=== PATIENT | female | born 1995 | race Caucasian/White ===

== ENCOUNTER 2020-10-28 03:20 | Outpatient (CLI) | payer BC ==
[~2020-10-28] VITALS: Ht 157.5 cm; Wt 68.6 kg
--- NOTE | 2020-10-28 03:25 | NUR ---
G1L0. 39-0. Ambulatory to LDR 3 with spouse. Clean gown on. EFM and TOCO explained and applied. Pt states she has been patricia since 2200 tonight. Reports contractions 8-10 mins apart and states they are starting to get shorter. Pt denies leaking of contractions or vaginal bleeding. Reports good movement. Plan of care explained to pt and . Denies quesitons at this time. SVE /-3. VS and assessment completed. Call light within reach.
[2020-10-28] MEDS ORDERED: PRENATAL MVI PO (03:42)
[2020-10-28 04:00] VITALS: BP 119/74; PULSE 101; TEMP 98.1
--- NOTE | 2020-10-28 04:30 | NUR ---
SVE unchanged. Plan of care and pain relief options explained to pt and who verbalize their understanding. Denies questions at this time. States she is just ready to go home. 0436: Dr. Hartley called and updated on pts status. See physican notification. 0437: Pt off monitors and instructed to change into street clothes. 0450: Discharge instructions explained to pt and who verbalize their understanding. Denies questions. Pt ambulatory off unit and home with spouse.
[2020-10-28 04:37] VITALS: BP 124/81; PULSE 87
== END 2020-10-28 04:50 | disposition home or self-care (01) ==
LOC: LDRO 03:20 → LDR 04:43 → LDRO 04:50
DX: O62.9 Abnormality of forces of labor, unspecified (principal); Z3A.39 39 weeks gestation of pregnancy
CPT/HCPCS: OP

== ENCOUNTER 2020-10-28 17:26 | Inpatient (IN) | payer BC ==
[~2020-10-28] VITALS: Ht 152.4 cm; Wt 68.6 kg
[2020-10-28] VITALS (22 sets, daily range): BP systolic 113–149; BP diastolic 60–95; PULSE 78–139; TEMP 98.4
[~2020-10-28 17:26] MED LIST: PRENATAL MVI PO
--- NOTE | 2020-10-28 17:30 | NUR ---
Pt arrives on unit ambulatory with spouse. States ctx that have intensified since this morning. Denies vaginal bleeding, LOF, and reports GFM. Rates pain 6/10 during the "peak of the contraction." Changed into clean gown. EFM and toco applied. VSS. SVE per this RN 4-5//-[address] Wilkins notified. Orders for admission. Pt requesting epidural. Admission assessment performed. Consents singed. Cat 1 FHR tracing.
[2020-10-28 18:04] LABS: BASO % 0.2 % (0.0-2.0); GRAN # 15.8 (1.4-6.5); GRAN % 88.7 % (42.2-75.2); HEMATOCRIT 38.2 % (37.0-47.0); HEMOGLOBIN 12.9 g/dl (12.5-16.0); LYMPH # 1.1 (1.2-3.4); LYMPH % 6.2 % (20.0-51.0); MEAN CELL VOLUME 86 fl (80.0-100.0); MEAN CORPUSCULAR HEMOGLOBIN 29 pg (27.0-31.0); MEAN CORPUSCULAR HGB CONC 34 g/dl (33.0-37.0); MEAN PLATELET VOLUME 10.7 fl (7.4-10.4); MONO # 0.8 (0.1-0.6); MONO % 4.3 % (1.7-9.3); PLATELET COUNT 310 K/mm3 (130-400); RED BLOOD COUNT 4.42 M/mm3 (4.10-5.30); REDCELL DISTRIBUTION WIDTH-CV 13.4 % (11.5-14.5)
--- NOTE | 2020-10-28 18:13 | NUR ---
1812- Pt sitting up on the edge of the bed for epidural placement. VERENA Guzman at the bedside. Time out done. SPO2 monitor started. EFM tracing maternal HR as coorelates with SPO2 monitor. 1820- Single shot given per VERENA Guzman. See anesthesia records for details. 1825- Assisted pt back to supine position with left wedge. EFM and toco monitors adjusted. Plan of care reviewed with pt and at the bedside.
--- NOTE | 2020-10-28 21:13 | NUR ---
2112- Dr. Wilkins at the bedside. FHR tracing reviewed. 2114- SVE /-[address] Wilkins. AROM with clear fluid. 2139- SVE by this RN . 2143- Henriquez removed without complications. Pushing instructions reviewed. 2145- Pushing started. 2219- Dr. Wilkins at the bedside and pushing with pt. 2228- Pt set up for delivery. 2229- Unable to determine FHR baseline. FHR ranging from 110-160bpm with moderate variability while pushing. Dr. Wilkins remains at the bedside. 2241- of viable male . [place] placed on mom's abdomen. Cords clamped and cut. Care of the given to nursery RN at the bedside. 2245- of placenta. Pitocin started at 333ml/hr per order and protocol. Fundus firm per Dr. Wilkins and zoe MILLSL.
[2020-10-29] VITALS (8 sets, daily range): BP systolic 113–136; BP diastolic 61–85; PULSE 88–112; TEMP 97.4–98.5
--- NOTE | 2020-10-29 08:45 | NUR ---
Warm pack provided for back pain.
--- NOTE | 2020-10-29 09:24 | NUR ---
Initial visit; Parents thanked Perinatal Technician for offering congratulations and God's blessings for the of their son. Perinatal Technician thanked family for choosing [facility].
--- NOTE | 2020-10-29 18:40 | NUR ---
Report recieved. Watching educational videos. Reports at 1800. Updated whiteboard and reviewed POC. Denied questions/concerns.
[2020-10-30 07:10] VITALS: BP 115/83; PULSE 81; TEMP 97.8
== END 2020-10-30 11:10 | disposition home or self-care (01) | DRG 807 ==
LOC: LDRO 17:26 → OB 17:32 → LDR 17:32 → OB 10-29 02:40
PROVIDERS: Obstetrics & Gynecology; ADMIT Obstetrics & Gynecology
PROC: 10E0XZZ Delivery of Products of Conception, External Approach (ICD-10-PCS; principal; 2020-10-28)
PROC: 0KQM0ZZ Repair Perineum Muscle, Open Approach (ICD-10-PCS; 2020-10-28)
PROC: 10907ZC Drainage of Amniotic Fluid, Therapeutic from Products of Conception, Via Natural or Artificial Opening (ICD-10-PCS; 2020-10-28)
DX: O70.1 Second degree perineal laceration during delivery (principal); Z37.0 Single live birth; Z3A.39 39 weeks gestation of pregnancy
CPT/HCPCS: OP; J2590; J2791; J2795; J7120

== ENCOUNTER 2022-06-27 20:56 | Outpatient (CLI) | payer BC ==
[~2022-06-27] VITALS: Ht 157.5 cm; Wt 66.8 kg
--- NOTE | 2022-06-27 21:25 | NUR ---
PT AMBULATED TO THE UNIT WITH SPOUSE IN TOW. PT ORIENTED TO LDR5, CHANGED INTO GOWN, FHR AND TOCO MONITOR APPLIED. PT REPORTS HAVING CTX EVERY TWO TO THREE MINUTES. PT DENIES LOF AND VAGINAL BLEEDING.
[2022-06-27 22:00] VITALS: BP 132/76; PULSE 100; TEMP 98
--- NOTE | 2022-06-27 22:00 | NUR ---
2143: TARA OLIVERE -3. POC DISCUSSED WITH PT AND PT SPOUSE. PT AND PT SPOUSE VERBALIZED UNDERSTANDING AND AGREEMENT. PT DENIES QUESTIONS, CONCERNS, AND NEEDS AT THIS TIME.
[2022-06-27] MEDS ORDERED: COLACE 100100 MG/CAP PO (22:16)
[2022-06-27] MEDS ORDERED: PRILOTC (22:17)
[2022-06-27 22:30] VITALS: BP 121/70; PULSE 107
[2022-06-27 23:10] VITALS: BP 129/73; PULSE 102
--- NOTE | 2022-06-27 23:10 | NUR ---
8314-2304: PT REQUESTED A BIRTHING BALL. DIFFICULTY TRACING FHR AND CTX DUE TO MATERNAL POSITION. [id number]: DIFFICULTY TRACING FHR AND CTX DUE TO MATERNAL POSITION. 2252: Vale DEMARCO RN SVE UNCHANGED. THIS NURSE WAS AT BEDSIDE ATTEMPTING TO READJUST EXTERNAL MONITORS x2. POC DISCUSSED WITH PT AND PT SPOUSE. PT AND PT SPOUSE VERBALIZED AGREEMENT AND UNDERSTANDING. PT DENIES QUESTIONS, CONERNS, AND NEEDS AT THIS TIME. 2305: DR. MOORE CONTACTED WITH UPDATE CHARTED.
--- NOTE | 2022-06-27 23:30 | NUR ---
PT AMBULATED WITH STEADY GAIT OFF UNIT, ACCOMPANIED BY PT SPOUSE. PT DISCHARGE SUMMARY IN HAND.
[2022-06-29] MEDS ORDERED: IBU800 M1 PO (11:10)
== END 2022-06-27 23:30 | disposition home or self-care (01) ==
LOC: LDRO 20:56
DX: O62.9 Abnormality of forces of labor, unspecified (principal); Z3A.39 39 weeks gestation of pregnancy